=== PATIENT | female | born 1970 | race Caucasian/White ===

== ENCOUNTER 2022-05-01 18:43 | Emergency (ER) | payer MEDICAID, OTHER ==
[~2022-05-01] VITALS: Ht 154.9 cm; Wt 65.8 kg
[~2022-05-01 18:43] MED LIST: ACET-8905 PO; FERR-142 PO; IBUP-974 PO; PREN-385 PO
[2022-05-01 18:48] VITALS: BP 118/65
--- NOTE | 2022-05-01 20:00 | NUR ---
PA HOLLEY LOOKING FOR PATIENT IN ER LOBBY. NO ANSWER
--- NOTE | 2022-05-01 20:00 | NUR ---
PATIENT LEFT WITHOUT BEING SEEN BY PA HOLLEY. . NO FURTHER CARE PROVIDED FOR PATIENT.
--- NOTE | 2022-05-01 20:05 | NUR ---
CALLED FOR THE SECOND TIME NO RESPONSE
--- NOTE | 2022-05-01 20:10 | NUR ---
CALLED FOR THE THIRD TIME , NO RESPONSE
== END 2022-05-01 20:00 | disposition left against medical advice (07) ==
LOC: MED 18:43
DX: M79.645 Pain in left finger(s) (principal); Z53.21 Procedure and treatment not carried out due to patient leaving prior to being seen by health care provider

== ENCOUNTER 2023-12-22 15:01 | Emergency (ER) | payer MEDICAID ==
[~2023-12-22] VITALS: Ht 160 cm; Wt 54.4 kg
[2023-12-22 15:04] VITALS: BP 130/68; PULSE 91; RESP 16; TEMP 97.4; O2SAT 92
[2023-12-22] MEDS ORDERED: RISP2TAB52 PO (15:43)
[2023-12-22 16:05] VITALS: BP 119/84; PULSE 91; RESP 16; TEMP 97.4; O2SAT 92
== END 2023-12-22 16:05 | disposition home or self-care (01) ==
LOC: MED 15:01
DX: F31.9 Bipolar disorder, unspecified (principal); F41.9 Anxiety disorder, unspecified; Z76.0 Encounter for issue of repeat prescription; Z79.899 Other long term (current) drug therapy
CPT/HCPCS: 99281; 99282

== ENCOUNTER 2023-12-25 19:29 | Emergency (ER) | payer MEDICAID ==
[~2023-12-25 19:29] MED LIST changes: +RISP2TAB52 PO
== END 2023-12-25 20:00 | disposition left against medical advice (07) ==
LOC: MED 19:29
DX: Z53.21 Procedure and treatment not carried out due to patient leaving prior to being seen by health care provider (principal)